=== PATIENT | female | born 1950 | race Caucasian/White ===

== ENCOUNTER 2019-10-08 13:27 | Day surgery (SDC) | payer OTHER, BC ==
[2019-10-07 13:31] VITALS: BMI 36.0
[2019-10-08 14:01] VITALS: TEMP 98.4
[2019-10-08] MEDS ORDERED: MIDAZOLAM HCL 2 MG/2 ML SINGLE DOSE VIAL ONE ×2 (16:28)
--- NOTE | 2019-10-08 16:41 | HP ---
Admitting History and Physical - Admission Chief Complaint: Left Lumbar raqdiculopathy History of Present Illness: Pt presents with > # months chronic left low back and leg pain with parasthesias due to lumbar disk herniation. - Past Medical History ...: No - Smoking History Smoking history: Current every day smoker Have you smoked in the past 12 months: Yes Aproximately how many cigarettes per day: 7 - Alcohol/Substance Use Hx Alcohol Use: Yes (rare) Home Medications - Allergies Allergies/Adverse Reactions: Allergies Allergy/AdvReac Type Severity Reaction Status Date / Time No Known Allergies Allergy Verified 10/08/19 14:15 - Home Medications Home Medications: Ambulatory Orders NK [No Known Home Medication] 10/07/19 Physical Examination Vital Signs: Vital Signs Temperature 98.4 F 10/08/19 14:11 Pulse Rate 80 10/08/19 14:11 Respiratory Rate 20 10/08/19 14:11 Blood Pressure 127/78 10/08/19 14:11 O2 Sat by Pulse Oximetry (%) 94 L 10/08/19 14:10
[2019-10-08] MEDS ORDERED: BETAMET ACET/BETAMET NA PH 30 MG/5 ML VIAL IM ONE ×2 (16:47)
[2019-10-08] MEDS ORDERED: LIDOCAINE HCL 1%, 10 MG/ML (20ML VIAL) NR ONE ×3 (16:47)
[2019-10-08] MEDS ORDERED: BETAMET ACET/BETAMET NA PH 30 MG/5 ML VIAL ONE (16:52)
[2019-10-08 18:52] VITALS: BP 130/80; PULSE 73
== END 2019-10-08 18:20 | disposition home or self-care (01) ==
LOC: JASU-SURG 13:27
PROVIDERS: ATTEND Pain Medicine Pain Medicine
PROC: 3E0R33Z Introduction of Anti-inflammatory into Spinal Canal, Percutaneous Approach (ICD-10-PCS; 2019-10-08)
PROC: 3E0R3BZ Introduction of Anesthetic Agent into Spinal Canal, Percutaneous Approach (ICD-10-PCS; principal; 2019-10-08 15:30)
DX: M54.16 Radiculopathy, lumbar region (principal); M54.5 Low back pain
CPT/HCPCS: 76000-TC-FY